=== PATIENT | female | born 1955 ===

== ENCOUNTER 2025-08-16 10:10 | Outpatient (CLI) | payer MEDICARE, OTHER, SELFPAY | END 2025-08-16 10:11 | disposition home or self-care (01) | LOC: NFLDREF 08-20 04:10 | PROVIDERS: PCP Internal Medicine; Referring Provider Internal Medicine; Visit Provider Internal Medicine | DX: E53.8 Deficiency of other specified B group vitamins (principal); E78.5 Hyperlipidemia, unspecified | CPT/HCPCS: 80061; 82607 ==

== ENCOUNTER 2025-09-24 13:00 | Outpatient (RCR) | payer OTHER, SELFPAY ==
--- NOTE | 2025-08-29 12:07 | PT.OPEX ---
[facility] Outpatient Eval PT [facility] Outpatient Eval Start: 08/29/25 08:01 Freq: Status: Active Protocol: Document 08/29/25 08:02 JHOANACece (Rec: 08/29/25 12:06 TENISHA [id number]) E-signed By Ariane Aburto, PT Physical Therapy Outpatient Evaluation Insurance Information Recert Due Date 11/23/25 Insurance Name [employer],Medicare B Medical Diagnosis Right hip pain: s/p R hemiarthroplasty DOS: 06/14/25 Treating Diagnosis Right hip pain, limited hip ROM, antalgic gait, muscle weakness Referring MD Dupont Subjective Subjective Lolis reports to PT s/p 2 months R hip hemiarthroplasty after sustaining femur fracture from falling off a ladder 06/14/25. Also states imaging showed R rib fracture however has not had any pain in this region. She spent 2 nights in the hospital and was d/c'd home with posterior approach ROM restrictions including no bending past 90 deg, adduction or internal rotation. She has had minimal pain since surgery and used a walker for a few days. She has been able to get back to most ADLs including walking, showering, standing for desired amounts, reciprocal stair negotiation. She notes slight limp in her gait still. She normally goes to the gym in the winter and is inquiring about what exercises she can do at this time with restrictions. She has a follow up with surgeon in September. 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 Objective Other/Pertinent Hip ROM: full within restriction (no flex past 90, IR, Objective add) Incision healing well: posterior incision about 6 long , no s/s of infection, increased scar tissue proximal incision SL balance: able to hold 30 sec, slight trendelenburg Gait: no AD, reverse trendelenburg R LE Strength (R/L): -Knee Ext: R: 4+/5, L: 5/5 -Knee Flex: R: 5/5, L: 5/5 -Hip Abd: R: 4+/5, L: 5-/5 -Hip Ext: R: 4+/5, L: 4+/5 -Hip Flx: R: 4+/5, L: 5/5 Functional Test LEFS: 53/80 Performed & Score Assessment Assessment/ Patient is a 70 year old female presenting to physical Impression therapy for evaluation and treatment of right hip pain following hemiarthroplasty DOS: 06/14/25. Patient presents with expected post surgical antalgic gait and proximal hip weakness. These impairments are limiting the patients ability to walk without a limp and return to desired activities including lifting weights as well as participating fully in sex. Patient appears motivated to participate in PT and presents with good prognosis to improve mobility, strength, proprioception and return to functional activities with skilled physical therapy intervention. Plan of Care Rehabilitation Good Potential Physical Therapy In 4 visits: Goals Pt will demonstrate normal gait mechanics with 0/10 pain Pt will be able to walk >1 hour for community ambulation In 8 visits: Pt will be independent with HEP and self management of symptoms Pt will exhibit 9 pt improvement in LEFS Outcome measure to demonstrate functional improvement and progress towards goals. Pt will be able to walk >2 hours for cardiovascular fitness Pt will be able to squat and lift moderate weight in order to return to work on [employer] early spring Treatment Plan/ Gait Training,Ice/Cold/Vasopneumatic,Joint Mobilization Direct Interventions ,Manual Therapy,Neuromuscular Re-ed,Self-Care/Home Management,Therapeutic Activities,Therapeutic Exercises Frequency/Duration 1x/wk for 4 weeks with additional 2-4 sessions prn based on progress Patient Will Be Completion of LTG(s),Independent w/HEP,Independently Discharged From Progressing Therapy Evaluation Billing Untimed Code 25 Treatment Minutes Complexity Low Certification Information Initial 08/29/25 Certification Date Ending Certification 11/23/25 Date Provider Signature Yes Required Provider Signature POC & Medical Necessity Shows Agreement With Physician NPI Number Write NPI# Here Physician Comment/ : Change Physician Signature Please Sign/Date Here & Date Requested
== END 2025-09-24 13:52 | disposition home or self-care (01) ==
PROVIDERS: PCP Internal Medicine; Visit Provider Internal Medicine
DX: Z48.89 Encounter for other specified surgical aftercare (principal); Z96.641 Presence of right artificial hip joint; Z51.89 Encounter for other specified aftercare
CPT/HCPCS: 97110; 97161